=== PATIENT | male | born 1960 | race Caucasian/White ===

== ENCOUNTER 2017-02-04 23:54 | Emergency (ER) | payer OTHER, MEDICAID ==
[~2017-02-04 23:54] MED LIST: A/B OTIC15 ML; ASPIR-LOW81 M1 PO; ATORVASTATIN CA40 M1 PO; BUPROPION HCL100 M1 PO; COL100 PO; LAC PO; LEVAQUIN500 MG PO; LEVAQUIN750 MG PO; NIC14 TD; NORCO1 TA2 PO; OYSTER SHELL C500 MG PO; PROVENTIL0.09 MG/A1 INH; PROZAC40 MG PO; PULMICORT0.25 MG/2 NEB; SEROQUEL200 MG PO; TRAZODONE HYDR150 MG PO
[2017-02-05 00:22] LABS: BASOPHIL % 0.5 % (0-2); PLATELET COUNT 286 x10^3mcL (130-400)
[2017-02-05 00:24] LABS: RED CELL DISTRIBUTION WIDTH 14.6 % (11.5-14.5)
[2017-02-05 00:42] LABS: CALCIUM 7.9 mg/dL (8.5-10.1); CARBON DIOXIDE 23.9 mmol/L (21-32); CHLORIDE SERUM 101 mmol/L (98-107); CREATININE SERUM 0.6 mg/dL (0.7-1.3); GFR1 > 60 mL/min; GLUCOSE SERUM 75 mg/dL (74-106); SODIUM SERUM 137 mmol/L (136-145)
[2017-02-05 00:47] LABS: ALBUMIN 3.7 g/dL (3.4-5.0); ALKALINE PHOSPHATASE 57 U/L (46-116); ALT/SGPT 17 U/L (16-63); AST/SGOT 29 U/L (15-37); BILIRUBIN TOTAL 0.4 mg/dL (0.20-1.00); TOTAL PROTEIN, SERUM 6.7 g/dL (6.4-8.2)
[2017-02-05 01:19] LABS: AMPHETAMINE QUAL UR NONE DETECTED (NEG <=1000)
[2017-02-05 02:57] VITALS: BP 118/84
== END 2017-02-05 02:57 | disposition home or self-care (01) ==
LOC: ED 23:54
PROVIDERS: Emergency Medicine
DX: F10.129 Alcohol abuse with intoxication, unspecified (principal); F20.9 Schizophrenia, unspecified
CPT/HCPCS: G0480; J7030

== ENCOUNTER 2017-02-05 14:35 | Emergency (ER) | payer OTHER, MEDICAID ==
[2017-02-05 16:17] LABS: BASOPHIL % 0.4 % (0-2); PLATELET COUNT 280 x10^3mcL (130-400)
[2017-02-05 16:21] LABS: CALCIUM 8.2 mg/dL (8.5-10.1); CHLORIDE SERUM 105 mmol/L (98-107); CREATININE SERUM 0.6 mg/dL (0.7-1.3); GFR1 > 60 mL/min; GLUCOSE SERUM 66 mg/dL (74-106); POTASSIUM SERUM 4.3 mmol/L (3.5-5.1); SODIUM SERUM 143 mmol/L (136-145)
[2017-02-05 16:23] LABS: RED CELL DISTRIBUTION WIDTH 14.8 % (11.5-14.5)
[2017-02-05 16:27] LABS: ALBUMIN 3.7 g/dL (3.4-5.0); ALKALINE PHOSPHATASE 45 U/L (46-116); ALT/SGPT 20 U/L (16-63); AST/SGOT 29 U/L (15-37); BILIRUBIN TOTAL 0.51 mg/dL (0.20-1.00); TOTAL PROTEIN, SERUM 6.5 g/dL (6.4-8.2)
[2017-02-05 16:48] LABS: microscopic required? YES; urine erythrocyte TRACE (NEGATIVE)
[2017-02-05 16:58] LABS: AMPHETAMINE QUAL UR NONE DETECTED (NEG <=1000)
[2017-02-05 20:20] VITALS: BP 118/75
== END 2017-02-05 23:03 | disposition home or self-care (01) ==
LOC: ED 14:35
PROVIDERS: Emergency Medicine
DX: F32.1 Major depressive disorder, single episode, moderate (principal); F10.129 Alcohol abuse with intoxication, unspecified; J44.9 Chronic obstructive pulmonary disease, unspecified; F99 Mental disorder, not otherwise specified; M19.90 Unspecified osteoarthritis, unspecified site; F41.9 Anxiety disorder, unspecified; F20.9 Schizophrenia, unspecified; Z88.0 Allergy status to penicillin
CPT/HCPCS: 36415; G0480

== ENCOUNTER 2017-02-16 14:50 | Emergency (ER) | payer OTHER, MEDICAID ==
[~2017-02-16] VITALS: Ht 175.3 cm; Wt 54.4 kg
[2017-02-16 18:03] VITALS: BP 91/49
== END 2017-02-16 18:25 | disposition home or self-care (01) ==
LOC: ED 14:50
DX: M54.9 Dorsalgia, unspecified (principal); F10.20 Alcohol dependence, uncomplicated; F20.9 Schizophrenia, unspecified; Z88.0 Allergy status to penicillin
CPT/HCPCS: J1885

== ENCOUNTER 2017-02-21 07:34 | Emergency (ER) | payer OTHER, MEDICAID ==
[~2017-02-21] VITALS: Ht 175.3 cm; Wt 54.4 kg
[2017-02-21 09:47] VITALS: BP 106/69
== END 2017-02-21 09:47 | disposition home or self-care (01) ==
LOC: ED 07:34
DX: S33.5XXA Sprain of ligaments of lumbar spine, initial encounter (principal); S33.8XXA Sprain of other parts of lumbar spine and pelvis, initial encounter; F10.20 Alcohol dependence, uncomplicated; J44.9 Chronic obstructive pulmonary disease, unspecified; E78.5 Hyperlipidemia, unspecified; G47.00 Insomnia, unspecified; F12.90 Cannabis use, unspecified, uncomplicated; F17.200 Nicotine dependence, unspecified, uncomplicated; Z88.0 Allergy status to penicillin; X58.XXXA Exposure to other specified factors, initial encounter; Y93.89 Activity, other specified; Y99.8 Other external cause status; Y92.89 Other specified places as the place of occurrence of the external cause
CPT/HCPCS: J2270; J2405

== ENCOUNTER 2017-07-26 09:49 | Emergency (ER) | payer OTHER, MEDICAID ==
[2017-07-26 13:06] VITALS: BP 120/63
== END 2017-07-26 13:06 | disposition home or self-care (01) ==
LOC: ED 09:49
DX: G89.29 Other chronic pain (principal); M54.5 Low back pain; F41.9 Anxiety disorder, unspecified; J44.9 Chronic obstructive pulmonary disease, unspecified; M19.90 Unspecified osteoarthritis, unspecified site; Z88.0 Allergy status to penicillin
CPT/HCPCS: J1885

== ENCOUNTER 2017-08-14 14:03 | Emergency (ER) | payer OTHER, MEDICAID | END 2017-08-14 15:23 | disposition left against medical advice (07) | LOC: ED 14:03 | DX: Z53.21 Procedure and treatment not carried out due to patient leaving prior to being seen by health care provider (principal) ==

== ENCOUNTER 2018-01-30 13:35 | Emergency (ER) | payer OTHER ==
[~2018-01-30] VITALS: Ht 175.3 cm; Wt 54.4 kg
[2018-01-30 13:42] VITALS: Ht 175.3 cm; Wt 54.4 kg
[2018-01-30 17:25] VITALS: BP 111/72
== END 2018-01-30 17:25 | disposition home or self-care (01) ==
LOC: ED 13:35
DX: G89.29 Other chronic pain (principal); M54.9 Dorsalgia, unspecified; M51.36 Other intervertebral disc degeneration, lumbar region; F10.20 Alcohol dependence, uncomplicated; F17.210 Nicotine dependence, cigarettes, uncomplicated; F20.9 Schizophrenia, unspecified; F12.90 Cannabis use, unspecified, uncomplicated; F32.9 Major depressive disorder, single episode, unspecified; J44.9 Chronic obstructive pulmonary disease, unspecified; F41.9 Anxiety disorder, unspecified; Z71.6 Tobacco abuse counseling; X50.3XXA Overexertion from repetitive movements, initial encounter; Y93.89 Activity, other specified; Y92.89 Other specified places as the place of occurrence of the external cause; Y99.8 Other external cause status
CPT/HCPCS: 99406; J1100; J1885; Q0092

== ENCOUNTER 2018-03-30 14:44 | Emergency (ER) | payer OTHER, MEDICAID ==
[~2018-03-30] VITALS: Ht 167.6 cm; Wt 56.7 kg
[2018-03-30 14:53] VITALS: Ht 167.6 cm; Wt 56.7 kg
[2018-03-30 15:46] LABS: BASOPHIL % 0.6 % (0-2); PLATELET COUNT 255 x10^3mcL (130-400); RED CELL DISTRIBUTION WIDTH 14.2 % (11.5-14.5)
[2018-03-30 16:01] LABS: AMPHETAMINE QUAL UR NONE DETECTED (See below)
[2018-03-30 16:01] LABS: CALCIUM 7.7 mg/dL (8.5-10.1); CARBON DIOXIDE 26.4 mmol/L (21-32); CHLORIDE SERUM 102 mmol/L (98-107); CREATININE SERUM 0.8 mg/dL (0.7-1.3); GFR1 > 60 mL/min; GLUCOSE SERUM 79 mg/dL (74-106); POTASSIUM SERUM 3.8 mmol/L (3.5-5.1); SODIUM SERUM 136 mmol/L (136-145)
[2018-03-30 16:10] LABS: ALBUMIN 3.6 g/dL (3.4-5.0); ALKALINE PHOSPHATASE 45 U/L (46-116); ALT/SGPT 17 U/L (16-63); AST/SGOT 19 U/L (15-37); BILIRUBIN TOTAL 0.27 mg/dL (0.20-1.00)
[2018-03-30 16:51] VITALS: BP 117/74
== END 2018-03-30 16:51 | disposition home or self-care (01) ==
LOC: ED 14:44
PROVIDERS: Emergency Medicine
DX: T40.7X1A Poisoning by cannabis (derivatives), accidental (unintentional), initial encounter (principal); T65.91XA Toxic effect of unspecified substance, accidental (unintentional), initial encounter; R53.1 Weakness; R11.0 Nausea; J44.9 Chronic obstructive pulmonary disease, unspecified; G89.29 Other chronic pain; F41.9 Anxiety disorder, unspecified; F32.9 Major depressive disorder, single episode, unspecified; Z98.890 Other specified postprocedural states; Z88.0 Allergy status to penicillin; Y92.89 Other specified places as the place of occurrence of the external cause
CPT/HCPCS: G0480; J2405; J7030

== ENCOUNTER 2019-02-15 22:11 | Emergency (ER) | payer OTHER, MEDICAID ==
[~2019-02-15] VITALS: Ht 175.3 cm; Wt 53.1 kg
[2019-02-16 00:38] LABS: BASOPHIL % 0.3 % (0-2); PLATELET COUNT 285 x10^3mcL (130-400)
[2019-02-16 00:44] LABS: RED CELL DISTRIBUTION WIDTH 14.7 % (11.5-14.5)
[2019-02-16 00:49] LABS: CALCIUM 7.7 mg/dL (8.5-10.1); CARBON DIOXIDE 26.6 mmol/L (21-32); CHLORIDE SERUM 98 mmol/L (98-107); CREATININE SERUM 0.6 mg/dL (0.7-1.3); GFR1 > 60 mL/min; GLUCOSE SERUM 85 mg/dL (74-106); POTASSIUM SERUM 3.7 mmol/L (3.5-5.1); SODIUM SERUM 136 mmol/L (136-145)
[2019-02-16 00:54] LABS: ALBUMIN 3.5 g/dL (3.4-5.0); ALKALINE PHOSPHATASE 46 U/L (46-116); ALT/SGPT 17 U/L (16-63); AST/SGOT 14 U/L (15-37); BILIRUBIN TOTAL 0.3 mg/dL (0.20-1.00); LIPASE 93 IU/L (73-393); TOTAL PROTEIN, SERUM 6.3 g/dL (6.4-8.2)
[2019-02-16 01:22] LABS: AMPHETAMINE QUAL UR NONE DETECTED (See below)
[2019-02-16 01:37] VITALS: BP 108/75
== END 2019-02-16 01:38 | disposition home or self-care (01) ==
LOC: ED 22:11
PROVIDERS: Emergency Medicine
DX: R11.2 Nausea with vomiting, unspecified (principal); F10.129 Alcohol abuse with intoxication, unspecified; G89.29 Other chronic pain; M54.5 Low back pain; J44.9 Chronic obstructive pulmonary disease, unspecified; F41.9 Anxiety disorder, unspecified; F32.9 Major depressive disorder, single episode, unspecified; Z88.0 Allergy status to penicillin; Z98.890 Other specified postprocedural states
CPT/HCPCS: G0480; J2405; J7030

== ENCOUNTER 2019-08-28 07:58 | Emergency (ER) | payer OTHER, MEDICAID ==
[~2019-08-28] VITALS: Ht 175.3 cm; Wt 56.7 kg
[2019-08-28 08:15] VITALS: Ht 175.3 cm; Wt 56.7 kg
[2019-08-28 10:09] VITALS: BP 110/75
== END 2019-08-28 10:09 | disposition home or self-care (01) ==
LOC: ED 07:58
DX: H66.91 Otitis media, unspecified, right ear (principal); F17.210 Nicotine dependence, cigarettes, uncomplicated; F10.20 Alcohol dependence, uncomplicated; J44.9 Chronic obstructive pulmonary disease, unspecified; M19.90 Unspecified osteoarthritis, unspecified site; G89.29 Other chronic pain; Z88.0 Allergy status to penicillin; Y90.9 Presence of alcohol in blood, level not specified
CPT/HCPCS: 99406; J1885

== ENCOUNTER 2020-02-12 17:13 | Emergency (ER) | payer OTHER, MEDICAID ==
[~2020-02-12] VITALS: Ht 170.2 cm; Wt 68.0 kg
[2020-02-12 17:22] VITALS: Ht 170.2 cm; Wt 68.0 kg
[2020-02-12 18:39] LABS: BASOPHIL % 0.4 % (0-2); PLATELET COUNT 285 x10^3mcL (130-400)
[2020-02-12 18:40] LABS: RED CELL DISTRIBUTION WIDTH 15.6 % (11.5-14.5)
[2020-02-12 18:47] LABS: microscopic required? NO
[2020-02-12 18:53] LABS: UA SPECIFIC GRAVITY <=1.005 (1.005-1.035); urine erythrocyte NEGATIVE (NEGATIVE)
[2020-02-12 19:06] LABS: CALCIUM 7.6 mg/dL (8.5-10.1); CARBON DIOXIDE 30.5 mmol/L (21-32); CHLORIDE SERUM 99 mmol/L (98-107); CREATININE SERUM 0.6 mg/dL (0.7-1.3); GFR1 > 60 mL/min; GLUCOSE SERUM 84 mg/dL (74-106); POTASSIUM SERUM 3.7 mmol/L (3.5-5.1); SODIUM SERUM 135 mmol/L (136-145)
[2020-02-12 19:08] LABS: AMPHETAMINE QUAL UR NONE DETECTED (See below)
[2020-02-12 19:14] LABS: ALBUMIN 3.5 g/dL (3.4-5.0); ALKALINE PHOSPHATASE 56 U/L (46-116); ALT/SGPT 25 U/L (16-63); AST/SGOT 32 U/L (15-37); BILIRUBIN TOTAL 0.3 mg/dL (0.20-1.00); CHOLESTEROL 193 mg/dL (<200); HDL CHOLESTEROL 106 mg/dL (40-60); LIPASE 116 IU/L (73-393); MAGNESIUM 2.1 mg/dL (1.8-2.4); T4(THYROXINE) 8.1 ug/dL (4.7-13.3); TOTAL PROTEIN, SERUM 6.4 g/dL (6.4-8.2)
[2020-02-12 20:53] VITALS: BP 120/81
== END 2020-02-12 20:53 | disposition home or self-care (01) ==
LOC: ED 17:13
PROVIDERS: Emergency Medicine
DX: F10.129 Alcohol abuse with intoxication, unspecified (principal); F20.9 Schizophrenia, unspecified; F32.9 Major depressive disorder, single episode, unspecified; F12.20 Cannabis dependence, uncomplicated; Y90.9 Presence of alcohol in blood, level not specified; J44.9 Chronic obstructive pulmonary disease, unspecified; Z88.0 Allergy status to penicillin
CPT/HCPCS: 82962; 83880; G0480; J3411; J3475; J3490; J7042; Q0092

== ENCOUNTER 2020-03-14 15:05 | Emergency (ER) | payer OTHER, MEDICAID ==
[~2020-03-14] VITALS: Ht 175.3 cm; Wt 61.2 kg
[2020-03-14 15:15] VITALS: BP 97/65; Ht 175.3 cm; Wt 61.2 kg
== END 2020-03-14 16:25 | disposition home or self-care (01) ==
LOC: ED 15:05
DX: F10.129 Alcohol abuse with intoxication, unspecified (principal); J44.9 Chronic obstructive pulmonary disease, unspecified; M19.90 Unspecified osteoarthritis, unspecified site; G89.29 Other chronic pain; Z88.0 Allergy status to penicillin; Y90.9 Presence of alcohol in blood, level not specified